=== PATIENT | female | born 1970 | race Caucasian/White ===

== ENCOUNTER 2018-03-11 02:00 | Emergency (ER) | payer MEDICAID ==
[2018-03-11] MEDS ORDERED: Zofran 4 MG/2 ML VIAL IV ONE ×2 (02:01→02:24)
[2018-03-11] MEDS ORDERED: DIPRIVAN 200 MG/20 ML IV ONE (02:01)
[2018-03-11] MEDS ORDERED: SUBLIMAZE 100 MCG/2 ML IV ONE (02:01)
[2018-03-11] MEDS ORDERED: Zemuron 100 MG/10 ML IJ ONE (02:01)
[2018-03-11] MEDS ORDERED: TORAdol 30 mg Injection IJ ONE (02:01)
[2018-03-11] MEDS ORDERED: Quelicin Fliptop 200 MG/10 ML IJ ONE (02:01)
[2018-03-11] MEDS ORDERED: Decadron 4 MG INJ IV ONE (02:01)
[2018-03-11] MEDS ORDERED: Pepcid 20 MG VIAL IV ONE ×5 (02:24→07:50)
[2018-03-11] MEDS ORDERED: Hydromorphone 1 mg/ml Ampule IV ONE (02:24)
[2018-03-11] MEDS ORDERED: Sodium Chloride 0.9% 1000 ML 1,000 ML IV SCH (02:30)
[2018-03-11] MEDS ORDERED: Zofran 4 MG/2 ML VIAL ONE ×2 (02:53→10:20)
[2018-03-11] MEDS ORDERED: Hydromorphone 1 mg/ml Ampule ONE (02:54)
--- NOTE | 2018-03-11 02:57 | ERPHSYRPT ---
- History of Present Illness Time Seen by Provider: 03/11/18 02:25 Historian: patient Exam Limitations: clinical condition Physician History: PATIENT COMPLAINS OF ACUTE ONSET OF EPIGASTRIC PAIN ASSOCIATE WITH EMESIS X 3-4 EPISODES SINCE 10PM LAST NIGHT AFTER EATING DINNER. STATES PAIN RADIATES TO BACK. RATES PAIN SCALE 10/10. DENIES DIARRHEA, FEVER OR URINARY SYMPTOMS. Timing/Duration: yesterday Activities at Onset: none Quality: sharpness, stabbing Abdominal Pain Onset Location: epigastric Pain Radiation: back Severity of Pain-Max: severe Severity of Pain-Current: severe Modifying Factors: Improves With: eating Associated Symptoms: nausea, vomiting Previous symptoms: no prior history Home Medications: No Reportable Medications [No Reported Medications] 03/11/18 [History] - Review of Systems Constitutional: No Fever, No Chills Eyes: No Symptoms Ears, Nose, & Throat: No Symptoms Respiratory: No Symptoms, No Cough, No Dyspnea Cardiac: No Symptoms, No Chest Pain, No Edema, No Syncope Abdominal/Gastrointestinal: Abdominal Pain, Nausea, Vomiting, No Diarrhea Genitourinary Symptoms: No Symptoms, No Dysuria Musculoskeletal: Back Pain, No Neck Pain Skin: No Symptoms, No Rash Neurological: Irritability, No Dizziness, No Focal Weakness, No Sensory Changes Psychological: No Symptoms Endocrine: No Symptoms All Other Systems: Reviewed and Negative - Female History Hx Now: No (PREVIOUS HYSTERECTOMY) - Nursing Vital Signs Nursing Vital Signs: Initial Vital Signs Temperature 97.4 F 03/11/18 02:24 Pulse Rate 55 L 03/11/18 02:24 Blood Pressure 159/78 03/11/18 02:24 O2 Sat by Pulse Oximetry 99 03/11/18 02:24 Pain Scale Pain Intensity 10 - CT Exams Abdomen/Pelvis CT Interpretation: Tele-radiologist Report (GALLSTONES, GALLBLADDER WALL THICKENING, AND PERICHOLECSTIC FLUID, EVIDENCE OF ACUTE CHOLECYSTITIS) Ordered Tests: Active Orders 24 hr Category Date Time Status Clean Catch Urine Specimen STAT Care 03/11/18 02:24 Active EKG-ER Only STAT Care 03/11/18 02:24 Active IV Insertion STAT Care 03/11/18 02:24 Active ABDOMEN AND PELVIS W CONTRAST [CT] Stat Exams 03/11/18 02:29 Ordered CHEST 1 VIEW (PORTABLE) Stat Exams 03/11/18 02:31 Ordered AMYLASE Stat Lab 03/11/18 03:00 Completed BLOOD CULTURE Stat Lab 03/11/18 06:55 Received CBC W DIFF Stat Lab 03/11/18 03:00 Completed CMP Stat Lab 03/11/18 03:00 Completed LIPASE Stat Lab 03/11/18 03:00 Completed Lactic Acid Stat Lab 03/11/18 03:35 Completed PROTIME WITH INR Stat Lab 03/11/18 03:00 Completed TROPONIN Q3H Lab 03/11/18 03:00 Completed UA W/RFX UR CULTURE Stat Lab 03/11/18 03:53 Completed Medication Summary Generic Name Dose Route Start Last Admin Trade Name Freq PRN Reason Stop Dose Admin Sodium Chloride 1,000 mls @ 500 mls/hr 03/11/18 02:30 03/11/18 02:56 Sodium Chloride 0.9% 1000 Ml IV 04/10/18 02:29 500 mls/hr .Q2H LORIE Administration Discontinued Medications Generic Name Dose Route Start Last Admin Trade Name Freq PRN Reason Stop Dose Admin Famotidine 20 mg 03/11/18 02:24 03/11/18 02:58 Pepcid 20 Mg Vial IV 03/11/18 02:25 20 mg STAT ONE Administration Famotidine Confirm 03/11/18 02:54 Pepcid 20 Mg Vial Administered 03/11/18 02:55 Dose 20 mg IV .STK-MED ONE Hydromorphone HCl 1 mg 03/11/18 02:24 03/11/18 02:59 Hydromorphone 1 Mg/Ml Ampule IV 03/11/18 02:25 1 mg STAT ONE Administration Hydromorphone HCl Confirm 03/11/18 02:54 Hydromorphone 1 Mg/Ml Ampule Administered 03/11/18 02:55 Dose 1 mg .ROUTE .STK-MED ONE Piperacillin Sod/Tazobactam Sod 3.375 gm in 100 mls @ 200 mls/hr 03/11/18 06: 10 03/11/18 06:20 Zosyn 3.375gm/100 Ml D5w IV 03/11/18 06:39 3.375 gm/hr STAT STA 100 mls/hr Administration Piperacillin Sod/Tazobactam Sod Confirm 03/11/18 06:14 Zosyn 3.375gm/100 Ml D5w Administered 03/11/18 06:15 Dose 3.375 gm in 100 mls @ ud IV .STK-MED ONE Ketorolac Tromethamine 30 mg 03/11/18 04:54 03/11/18 05:02 Toradol 30 Mg Injection IV 03/11/18 04:55 30 mg STAT ONE Administration Ketorolac Tromethamine Confirm 03/11/18 05:01 Toradol 30 Mg Injection Administered 03/11/18 05:02 Dose 30 mg .ROUTE .STK-MED ONE Ondansetron HCl 4 mg 03/11/18 02:24 03/11/18 02:59 Zofran 4 Mg/2 Ml Vial IV 03/11/18 02:25 4 mg STAT ONE Administration Ondansetron HCl Confirm 03/11/18 02:53 Zofran 4 Mg/2 Ml Vial Administered 03/11/18 02:54 Dose 4 mg .ROUTE .STK-MED ONE Lab/Rad Data: Laboratory Result Diagrams 03/11/18 03:00 03/11/18 03:00 Laboratory Results 03/11/18 03/11/18 03/11/18 Range/Units 03:53 03:35 03:00 WBC (4.0-10.5) K/mm3 RBC (4.1-5.4) M/mm3 Hgb (12.0-16.0) gm/dl Hct (35-47) % MCV (78-100) fl MCH (26-32) pg MCHC (32-36) g/dl RDW (11.5-14.0) % Plt Count (150-450) K/mm3 MPV (6-9.5) fl Gran % (36.0-66.0) % Eos # (Auto) (0-0.5) Absolute Lymphs (auto) (1.0-4.6) Absolute Monos (auto) (0.0-1.3) Lymphocytes % (24.0-44.0) % Monocytes % (0.0-12.0) % Eosinophils % (0.00-5.0) % Basophils % (0.0-0.4) % Absolute Granulocytes (1.4-6.9) Basophils # (0-0.4) PT (9.95-12.35) SECONDS INR (0.8-3.0) Sodium (137-145) mmol/L Potassium (3.5-5.1) mmol/L Chloride (98-107) mmol/L Carbon Dioxide (22-30) mmol/L Anion Gap (5-15) MEQ/L BUN (7-17) mg/dL Creatinine (0.52-1.04) mg/dL Estimated GFR ML/MIN Glucose (74-106) mg/dL Lactic Acid 1.6 (0.4-2.0) Calcium (8.4-10.2) mg/dL Total Bilirubin (0.2-1.3) mg/dL AST (14-36) U/L ALT (0-35) U/L Alkaline Phosphatase (38-126) U/L Troponin I < 0.012 (0.000-0.034) ng/mL Serum Total Protein (6.3-8.2) g/dL Albumin (3.5-5.0) g/dL Amylase (30-110) U/L Lipase (23-300) U/L Urine Color YELLOW (YELLOW) Urine Appearance CLEAR (CLEAR) Urine pH 7.0 (5-6) Ur Specific Redbird 1.018 (1.005-1.025) Urine Protein NEGATIVE (Negative) Urine Ketones TRACE (NEGATIVE) Urine Blood SMALL (0-5) Ignacio/ul Urine Nitrite NEGATIVE (NEGATIVE) Urine Bilirubin NEGATIVE (NEGATIVE) Urine Urobilinogen NEGATIVE (0-1) mg/dL Ur Leukocyte Esterase NEGATIVE (NEGATIVE) Urine WBC (Auto) NONE (0-5) /HPF Urine RBC (Auto) NONE (0-2) /HPF U Epithel Cells (Auto) NONE (FEW) /HPF Urine Bacteria (Auto) NONE (NEGATIVE) /HPF Urine Culture Reflexed NO (NO) Urine Glucose 50 (NEGATIVE) mg/dL 03/11/18 03/11/18 03/11/18 Range/Units 03:00 03:00 03:00 WBC 13.0 H (4.0-10.5) K/mm3 RBC 4.33 (4.1-5.4) M/mm3 Hgb 12.2 (12.0-16.0) gm/dl Hct 37.7 (35-47) % MCV 87.1 (78-100) fl MCH 28.2 (26-32) pg MCHC 32.4 (32-36) g/dl RDW 13.9 (11.5-14.0) % Plt Count 191 (150-450) K/mm3 MPV 10.6 H (6-9.5) fl Gran % 83.2 H (36.0-66.0) % Eos # (Auto) 0.05 (0-0.5) Absolute Lymphs (auto) 1.48 (1.0-4.6) Absolute Monos (auto) 0.61 (0.0-1.3) Lymphocytes % 11.4 L (24.0-44.0) % Monocytes % 4.7 (0.0-12.0) % Eosinophils % 0.4 (0.00-5.0) % Basophils % 0.3 (0.0-0.4) % Absolute Granulocytes 10.82 H (1.4-6.9) Basophils # 0.04 (0-0.4) PT 11.9 (9.95-12.35) SECONDS INR 1.02 (0.8-3.0) Sodium 138 (137-145) mmol/L Potassium 3.8 (3.5-5.1) mmol/L Chloride 104 (98-107) mmol/L Carbon Dioxide 26 (22-30) mmol/L Anion Gap 13.0 (5-15) MEQ/L BUN 14 (7-17) mg/dL Creatinine 0.68 (0.52-1.04) mg/dL Estimated GFR > 60.0 ML/MIN Glucose 171 H (74-106) mg/dL Lactic Acid (0.4-2.0) Calcium 10.3 H (8.4-10.2) mg/dL Total Bilirubin 0.40 (0.2-1.3) mg/dL AST 21 (14-36) U/L ALT 27 (0-35) U/L Alkaline Phosphatase 74 (38-126) U/L Troponin I (0.000-0.034) ng/mL Serum Total Protein 7.8 (6.3-8.2) g/dL Albumin 4.5 (3.5-5.0) g/dL Amylase 56 (30-110) U/L Lipase 130 (23-300) U/L Urine Color (YELLOW) Urine Appearance (CLEAR) Urine pH (5-6) Ur Specific Redbird (1.005-1.025) Urine Protein (Negative) Urine Ketones (NEGATIVE) Urine Blood (0-5) Ignacio/ul Urine Nitrite (NEGATIVE) Urine Bilirubin (NEGATIVE) Urine Urobilinogen (0-1) mg/dL Ur Leukocyte Esterase (NEGATIVE) Urine WBC (Auto) (0-5) /HPF Urine RBC (Auto) (0-2) /HPF U Epithel Cells (Auto) (FEW) /HPF Urine Bacteria (Auto) (NEGATIVE) /HPF Urine Culture Reflexed (NO) Urine Glucose (NEGATIVE) mg/dL - Progress Progress: improved, pain not gone completely Progress Note: 03/11/18 07:04 IV NORMAL SALINE 250ML/HR ZOFRAN 4MG, DILAUDID 1MG, TORADOL 30MG IV. Discussed with : Donnie (DISCUSSED WITH DR LOVE AT 0650 FOR ADMIT TO SURGERY FROM THE EMERGENCY), Other (DISCUSSED ) - Departure Time of Disposition: 07:08 Departure Disposition: Observation Clinical Impression: Cholelithiasis with acute cholecystitis Condition: Stable Critical Care Time: No
[2018-03-11 03:13] LABS: BASOPHIL % 0.3 % (0.0-0.4); Basophil (Absolute #) 0.04 (0-0.4); Eosinophil % 0.4 % (0.00-5.0); Eosinophil (Absolute #) 0.05 (0-0.5); Granulocyte Absolute (ANC) 10.82 (1.4-6.9); Granulocytes % 83.2 % (36.0-66.0); Hematocrit 37.7 % (35-47); Hemoglobin 12.2 gm/dl (12.0-16.0); Lymphocyte (Absolute #) 1.48 (1.0-4.6); Lymphocytes % 11.4 % (24.0-44.0); Mean Cell Volume 87.1 fl (78-100); Mean Corpuscular Hemoglobin 28.2 pg (26-32); Mean Corpuscular Hgb Concent. 32.4 g/dl (32-36); Mean Platelet Volume 10.6 fl (6-9.5); Monocyte (Absolute #) 0.61 (0.0-1.3); Monocytes % 4.7 % (0.0-12.0); Platelet Count 191 K/mm3 (150-450); Red Blood Count 4.33 M/mm3 (4.1-5.4); Red Cell Distribution Width 13.9 % (11.5-14.0)
[2018-03-11 03:23] LABS: INR 1.02 (0.8-3.0); PROTIME 11.9 SECONDS (9.95-12.35)
[2018-03-11 03:26] LABS: ALBUMIN 4.5 g/dL (3.5-5.0); ALKALINE PHOSPHATASE 74 U/L (38-126); AMYLASE 56 U/L (30-110); BLOOD UREA NITROGEN 14 mg/dL (7-17); CHLORIDE 104 mmol/L (98-107); Calcium 10.3 mg/dL (8.4-10.2); Carbon Dioxide 26 mmol/L (22-30); Creatinine 1 0.68 mg/dL (0.52-1.04); Glucose 171 mg/dL (74-106); LIPASE 130 U/L (23-300); Potassium 3.8 mmol/L (3.5-5.1); SGOT/AST 21 U/L (14-36); SGPT/ALT 27 U/L (0-35); SODIUM 138 mmol/L (137-145); Total Protein 7.8 g/dL (6.3-8.2)
[2018-03-11 04:03] LABS: Appearance CLEAR (CLEAR); Bilirubin NEGATIVE (NEGATIVE); Blood SMALL Ery/ul (0-5); Glucose 50 mg/dL (NEGATIVE); Ketones TRACE (NEGATIVE); Leukocyte Esterase NEGATIVE (NEGATIVE); Nitrite NEGATIVE (NEGATIVE); Protein,Urine Dip NEGATIVE (Negative); Specific Gravity 1.018 (1.005-1.025); Urobilinogen NEGATIVE mg/dL (0-1)
[2018-03-11 04:45] VITALS: BP 165/81
[2018-03-11] MEDS ORDERED: TORAdol 30 mg Injection IV ONE (04:54)
[2018-03-11] MEDS ORDERED: TORAdol 30 mg Injection ONE (05:01)
[2018-03-11] MEDS ORDERED: Zosyn 3.375GM/100 Ml D5W 3.375 GM/100 ML IVPB IV STA (06:10)
[2018-03-11] MEDS ORDERED: Zosyn 3.375GM/100 Ml D5W 3.375 GM/100 ML IVPB IV ONE (06:14)
[2018-03-11] MEDS ORDERED: MORPHINE SULFATE 4 MG INJ ONE (07:09)
[2018-03-11] MEDS ORDERED: MORPHINE SULFATE 4 MG INJ IV ONE (07:09)
[2018-03-11] MEDS ORDERED: Lactated Ringers 1,000 ML IV SCH (08:00)
[2018-03-11] MEDS ORDERED: MEFOXIN 2 GM PREMIX** 2 GM/50 ML ML IV ONE (08:00)
[2018-03-11 08:24] VITALS: PULSE 90; O2SAT 97
--- NOTE | 2018-03-11 08:24 | XRAY ---
Indication: Cough. Back pain. Comparison: None Portable chest demonstrates normal heart, lungs, and bony thorax with incidental right mid lung calcified granuloma.
--- NOTE | 2018-03-11 08:27 | XRAY ---
Indication: Epigastric pain. Emesis. Multiple contiguous axial images obtained through the abdomen and pelvis using 80 cc Isovue-370 contrast only. Comparison: None Lung bases essentially clear. Heart is not enlarged. Noncontrasted stomach and bowel loops appear nonobstructed. Normal appendix. Previous hysterectomy. No free fluid/air. Abnormal distended gallbladder with gallstones, largest 3.2 cm. Mild biliary prominence. Spleen is enlarged measuring 13 cm in greatest axial dimension. Sub-centimeter right mid renal cortical cyst. 4 cm right adnexa cyst presumed ovary in etiology. Remaining liver, pancreas, spleen, adrenal glands, kidneys, ureters, bladder, and aorta appear unremarkable. No pathologic retroperitoneal lymphadenopathy. Osseous structures intact. No ventral or inguinal hernias. Impression: 1. Abnormal distended gallbladder with gallstones and biliary distention. Ultrasound may yield further information. 2. 4 cm right adnexal cystic mass probably ovary in etiology. Pelvic sonogram may yield further information. 3. Incidental splenomegaly and subcentimeter right renal cyst. Comment: Preliminary interpretation was made by C. No critical discrepancy. CTDI 23.60
[2018-03-11] MEDS ORDERED: Sensorcaine 0.25% 10 ML ONE (08:36)
[2018-03-11] MEDS ORDERED: Lactated Ringers 1,000 ML IV ONE (08:37)
[2018-03-11] MEDS ORDERED: Phenergan 25 MG INJ ONE (10:38)
--- NOTE | 2018-03-13 10:36 | HP ---
HISTORY OF PRESENT ILLNESS: A 47 year-old obese female with epigastric pain radiating to her back. She had some nausea and vomiting. No jaundice. PAST MEDICAL HISTORY: She denies any chronic illnesses. Gallstones, gallbladder wall thickening, pericholecystic fluid. She had small cysts on her ovaries as well followed by her primary care physician/informatics coordinator. PAST SURGICAL HISTORY: Two or three sections and hysterectomy in the past. MEDICATIONS: None on a regular basis. ALLERGIES: I BELIEVE SHE SAID SHE WAS NOT ALLERGIC TO ANYTHING WHEN SHE TALKED TO ME. FAMILY HISTORY: Stroke, heart disease. SOCIAL HISTORY: Quit smoking 2009. Denies alcohol abuse. REVIEW OF SYSTEMS: Twelve systems reviewed. No chest pain or palpitations other systems negative or noncontributory as above and per preadmission questionnaire. She is overweight. LAB DATA AND TESTS: She had some leukocytosis. Her liver function tests were okay. PHYSICAL EXAMINATION: Temperature 97.4F, blood pressure 159/78. ABDOMEN: Tenderness epigastrium. No peritoneal signs. EXTREMITIES: No significant edema. NEURO: Alert, oriented, moving extremities symmetrically. IMPRESSION: Epigastric pain radiating to her back, associated with nausea and vomiting. CT and history, physical exam findings suspicious for acute symptomatic cholelithiasis, acute exacerbation of chronic cholecystitis. I feel the patient will benefit from cholecystectomy. She was explained the procedure in detail including but not limited to bleeding or infection, risk of trocar injury or hernia, small risk of bowel, bladder or blood vessel injury, small risk of bile leak, bile duct injury, retained stone or sludge possibly requiring further procedure either open or ERCP, general risk of anesthesia, deep venous thrombosis, pulmonary embolism, pneumonia, perioperative risk of aches, pains, bloating, constipation and/or loose stools possibly even chronic in nature, possible need to convert to open procedure, risk of bile duct injury, retained stone possibly requiring ERCP or other procedures, open procedures, general risk of anesthesia, deep venous thrombosis, pulmonary embolism, pneumonia, perioperative risk of aches, pain, bloating, constipation and/or loose stools possibly chronic in nature. She understands and agrees to the planned procedure, will proceed with laparoscopic cholecystectomy with possible open when OR time available.
--- NOTE | 2018-03-13 10:59 | OP ---
SURGERY DATE/TIME: 03/11/2018 0833 PREOPERATIVE DIAGNOSIS: Symptomatic cholelithiasis, acute exacerbation chronic cholecystitis. POSTOPERATIVE DIAGNOSIS: Symptomatic cholelithiasis, acute exacerbation chronic cholecystitis. PROCEDURE: Laparoscopic cholecystectomy. SURGEON: Dr. Jarrett Harris. ANESTHESIA: General. ESTIMATED BLOOD LOSS: Minimal. INDICATIONS: As noted above. Risks and benefits explained in detail but not limited to and consent obtained. DESCRIPTION OF PROCEDURE AND FINDINGS: The patient was taken to the OR. General anesthesia induced. Abdomen prepped and draped in the usual sterile fashion. After official time out and no disagreement with planned procedure, a transverse incision made at the supraumbilical area. Fascia grasped and pulled upward. Veress needle inserted and tested with saline. Pneumoperitoneum accomplished insufflating opening pressure of 0-15. A 5 mm bladeless port and camera inserted without difficulty in right upper quadrant with 11 mm port placed at the supraumbilical area. Another 5 mm right upper quadrant port and 5 mm epigastric port. The gallbladder was quite distended and tense. It was necessary to decompress bile with Veress needle and 60 cc syringe this allowed it to be grasped. Dissection carried posterior, lateral to anterior fashion. Extensive acute on chronic inflammatory reaction. Slowly and carefully main cystic artery and cystic duct infundibular junction were slowly and carefully well skeletonized until the critical view obtained both anteriorly and posteriorly. Once this was accomplished cystic duct was then clipped x3 and divided in usual fashion. The cystic artery isolated clipped x3 and divided in usual fashion directly on the gallbladder wall. The gallbladder slowly and carefully dissected free from its dense, edematous almost concrete attachments to the liver bed staying directly on the gallbladder wall clipping additional oozing side branches off the cystic artery as necessary directly on the gallbladder wall. Just prior to releasing from final attachments to the anterior edge of the liver the liver bed re-inspected. Clips are noted in place in cystic duct and cystic artery stumps. There were no sign of any active bleeding or bile leakage from liver bed itself. Clips noted in place in cystic duct and cystic artery stumps. Gallbladder released from final attachments to the anterior edge of the liver, placed in Pleatman sac and then pulled up in 10/11 port site supraumbilical area. Given the thick wall and stone in the gallbladder, it was necessary to enlarge the defect slightly to allow the Pleatman sac and gallbladder to be pulled free and passed off. Port replaced. Copious amount of irrigation accomplished lateral to the liver and subhepatic space irrigating clear. The liver bed re-inspected. Clips noted in place in cystic duct and cystic artery stumps. There were no signs of any active bleeding or bile leakage. It was felt there was no benefit from drain placement. At this point the fascial defect at 10/11 site closed with puncture closure device under direct vision of the camera with #1 Vicryl. Pneumoperitoneum decompressed. The wound was irrigated out. Skin incision closed with 4-0 Vicryl. Steri-Strips and sterile dressing applied. The patient tolerated the procedure well. There were no immediate complications. Findings discussed with the family out in the waiting area. She was transferred to the recovery room in stable condition.
== END 2018-03-11 12:00 | disposition home or self-care (01) ==
LOC: ED 02:00 → MERGE 02:00 → EDBD 02:00 → ED 12:00
DX: K80.00 Calculus of gallbladder with acute cholecystitis without obstruction (principal)
CPT/HCPCS: 36000; 36415; 71045; 74177; 80053; 81001; 82150; 83605; 83690; 84484; 85025; 85610; 87040; 93005; 96360; 96361; 96365; 96374; 96375; 96376; 99140; 99285; J0330; J1100; J1170; J1885; J2270; J2405; J2543; J2550; J2704; J3010

== ENCOUNTER 2023-01-02 16:37 | Emergency (ER) | payer MEDICAID ==
[2023-01-02 17:59] VITALS: BP 176/86
[2023-01-02 18:09] VITALS: PULSE 76; RESP 18; O2SAT 97
--- NOTE | 2023-01-02 18:16 | ERPHSYRPT ---
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 The patient is presenting to the emergency room today complaining of pain and swelling to her right ankle. The patient states that she tripped on an uneven floor today twisting her right ankle. This happened at around 12:30 PM. She has not taken any pain medications. She is walking but is limping. She is denying any pain to her right leg knee or hip joint. Allergies/Adverse Reactions: No Known Drug Allergies Allergy (Verified 01/02/23 17:59) Hx Influenza Vaccination/Date Given: No Hx Pneumococcal Vaccination/Date Given: No Immunizations Up to Date: Yes Travel Risk - International Travel Have you traveled outside of the country in past 3 weeks: No - Coronavirus Screening Are you exhibiting any of the following symptoms?: No Close contact with a COVID-19 positive Pt in past 14-21 Days: No - Vaccine Status Have you recieved a Covid-19 vaccination: No - Review of Systems Constitutional: No Fever, No Chills Eyes: No Symptoms Ears, Nose, & Throat: No Symptoms Respiratory: No Cough, No Dyspnea Cardiac: No Chest Pain, No Edema, No Syncope Abdominal/Gastrointestinal: No Abdominal Pain, No Nausea, No Vomiting, No Diarrhea Genitourinary Symptoms: No Dysuria Musculoskeletal: Joint Pain, Joint Swelling (Pain and swelling to the right ankle, the patient tripped today and twisted her right ankle), No Back Pain, No Neck Pain Skin: No Rash Neurological: No Dizziness, No Focal Weakness, No Sensory Changes Psychological: No Symptoms Endocrine: No Symptoms All Other Systems: Reviewed and Negative - Past Medical History Neurological History: No Pertinent History ENT History: No Pertinent History Cardiac History: No Pertinent History Respiratory History: No Pertinent History Endocrine Medical History: No Pertinent History Musculoskeletal History: Arthritis GI Medical History: No Pertinent History History: No Pertinent History Psycho-Social History: No Pertinent History Female Reproductive Disorders: Other Other Medical History: Pt states that she had excessive Uterine bleeding and they Performed Hysterectomy 2014 - Past Surgical History Past Surgical History: Yes Neuro Surgical History: No Pertinent History Cardiac: No Pertinent History Respiratory: No Pertinent History Gastrointestinal: No Pertinent History Genitourinary: No Pertinent History Musculoskeletal: No Pertinent History Female Surgical History: Hysterectomy Other Surgical History: Hysterectomy 2014 - Social History Smoking Status: Former smoker Exposure to second hand smoke: Yes Drug Use: none Patient Lives Alone: No - Nursing Vital Signs Nursing Vital Signs: Initial Vital Signs Pulse Rate 75 01/02/23 17:58 Respiratory Rate 16 01/02/23 17:58 Blood Pressure 176/86 01/02/23 17:58 O2 Sat by Pulse Oximetry 96 01/02/23 17:58 Pain Scale Pain Intensity 6 - Physical Exam General Appearance: no apparent distress, alert Eyes, Ears, Nose, Throat Exam: moist mucous membranes Neck Exam: non-tender, supple Cardiovascular/Respiratory Exam: chest non-tender, normal breath sounds, regular rate/rhythm, no respiratory distress Gastrointestinal/Abdominal Exam: non-tender, guarding Back Exam: normal inspection, No vertebral tenderness Hips Exam: bilateral: non-tender, normal inspection, normal range of motion, no evidence of injury Legs Exam: bilateral leg: non-tender, normal inspection, normal range of motion Knees Exam: bilateral knee: non-tender, normal inspection, normal range of motion, no evidence of injury Ankle Exam: right ankle: bone tenderness, joint effusion, limited range of mo tion, pain, soft tissue tenderness (The patient has a swelling to the right lateral malleolus with deep tenderness. Pain with range of motion especially plantar flexion.), swelling Foot Exam: bilateral foot: non-tender, normal inspection, normal range of motion, no evidence of injury Neuro/Tendon Exam: normal sensation, normal motor functions Mental Status Exam: alert, oriented x 3, cooperative Skin Exam: normal color, warm, dry SpO2: 97 - Course Nursing assessment & vital signs reviewed: Yes Ordered Tests: Active Orders 24 hr Category Date Time Status Crutches STAT Care 01/02/23 19:19 Completed Splint STAT Care 01/02/23 19:19 Completed ANKLE (3 VIEWS) Stat Exams 01/02/23 18:24 Completed FOOT (MINIMUM 3 VIEWS) Stat Exams 01/02/23 18:24 Completed - Progress Progress: unchanged Progress Note: 52 years old female with past medical history of 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 The patient is presenting to the emergency room today complaining of pain and swelling to her right ankle. The patient states that she tripped on an uneven floor today twisting her right ankle. This happened at around 12:30 PM. She has not taken any pain medications. She is walking but is limping. She is denying any pain to her right leg knee or hip joint. Emergency room course and medical decision making: Will order an an x-ray to the right ankle/ foot rule out any fracture, dislocation or sprain. The patient is refusing any pain medications at present 01/02/23 18:13 01/02/23 19:28 X-rays of the right foot revealed fracture of the base of the fifth and fourth metatarsals. Walking boot or an orthopedic shoe, crutches. The patient should follow-up with a electrical contacts adjuster or orthopedic in 2 to 3 days. For the pain she can take ibuprofen 800 mg 3 times a day as needed. Follow-up as needed for any worsening symptoms. - Departure Departure Disposition: Home Clinical Impression: Fracture of metatarsal bone of right foot Condition: Stable Critical Care Time: No Referrals: DOCTOR,NO FAMILY [Primary Care Provider] - Follow up/PCP as directed Instructions: Contusion (DC), Foot Fracture (DC) Prescriptions: Ibuprofen [Ibuprofen Ib] 800 mg PO Q6H #40 tablet
--- NOTE | 2023-01-02 21:27 | XRAY ---
Indication: Pain following twisting injury. Comparison: None 3 view right ankle demonstrates mild diffuse soft tissue swelling, small anterior talus bone island, and tiny plantar heel spur. Base 5th metatarsal fracture. No other bony, articular, or soft tissue abnormalities.
--- NOTE | 2023-01-02 21:29 | XRAY ---
Indication: Pain following twisting injury. Comparison: None 3 nonweightbearing views right foot demonstrates nondisplaced oblique fracture base 5th metatarsal. Elsewhere incidental tiny plantar heel spur and small anterior talus bone island.
== END 2023-01-02 20:06 | disposition home or self-care (01) ==
LOC: ED 16:37
DX: S92.341A Displaced fracture of fourth metatarsal bone, right foot, initial encounter for closed fracture (principal); S92.351A Displaced fracture of fifth metatarsal bone, right foot, initial encounter for closed fracture; W18.49XA Other slipping, tripping and stumbling without falling, initial encounter; M25.571 Pain in right ankle and joints of right foot; Z28.310 Unvaccinated for COVID-19
CPT/HCPCS: 73610; 73630; 99283

== ENCOUNTER 2023-03-21 16:25 | Emergency (ER) | payer SELFPAY ==
[2023-03-21 17:41] VITALS: RESP 18; TEMP 97.9; O2SAT 98
--- NOTE | 2023-03-21 18:24 | ERPHSYRPT ---
- History of Present Illness Time Seen by Provider: 03/21/23 17:45 Source: patient Exam Limitations: no limitations Patient Subjective Stated Complaint: Left foot pain Triage Nursing Assessment: Patient brought back to ED per w/c and requested to dinh metcalf in w/c. Patient A+O X 3. Patient's skin pink, warm and dry. Patient states she tripped today while at work causing pain to left foot. Patient complains of pain to mid foot when ambulating. Slight swelling noted. Physician History: Patient is a 52-year-old white female who tripped while she was at work today and fell suffering a fall and an injury to the left foot she has pain in the midfoot and over the lateral aspect. No other complaints from present leading to the fall. Method of Injury: fell Occurred: just prior to arrival Quality: aching Severity of Pain-Max: moderate Severity of Pain-Current: moderate Lower Extremities Pain: foot: left (Pain over the lateral aspect.) Modifying Factors: Improves With: movement, other (Weightbearing) Allergies/Adverse Reactions: No Known Drug Allergies Allergy (Verified 03/21/23 17:30) Hx Influenza Vaccination/Date Given: No Hx Pneumococcal Vaccination/Date Given: No Immunizations Up to Date: Yes Travel Risk - International Travel Have you traveled outside of the country in past 3 weeks: No - Coronavirus Screening Are you exhibiting any of the following symptoms?: No Close contact with a COVID-19 positive Pt in past 14-21 Days: No - Vaccine Status Have you recieved a Covid-19 vaccination: No - Review of Systems Constitutional: No Fever, No Chills Eyes: No Symptoms Ears, Nose, & Throat: No Symptoms Respiratory: No Cough, No Dyspnea Cardiac: No Chest Pain, No Edema, No Syncope Abdominal/Gastrointestinal: No Abdominal Pain, No Nausea, No Vomiting, No Diarrhea Genitourinary Symptoms: No Dysuria Musculoskeletal: Injury, Joint Pain, Joint Swelling, No Back Pain, No Neck Pain Skin: No Rash Neurological: No Dizziness, No Focal Weakness, No Sensory Changes Psychological: No Symptoms Endocrine: No Symptoms All Other Systems: Reviewed and Negative - Past Medical History Pertinent Past Medical History: Yes Neurological History: No Pertinent History ENT History: No Pertinent History Cardiac History: No Pertinent History Respiratory History: No Pertinent History Endocrine Medical History: No Pertinent History Musculoskeletal History: Arthritis GI Medical History: No Pertinent History History: No Pertinent History Psycho-Social History: No Pertinent History Female Reproductive Disorders: Other Other Medical History: Pt states that she had excessive Uterine bleeding and they Performed Hysterectomy 2014 - Past Surgical History Past Surgical History: Yes Neuro Surgical History: No Pertinent History Cardiac: No Pertinent History Respiratory: No Pertinent History Gastrointestinal: No Pertinent History Genitourinary: No Pertinent History Musculoskeletal: No Pertinent History Female Surgical History: Hysterectomy Other Surgical History: Hysterectomy 2014 - Social History Smoking Status: Former smoker Exposure to second hand smoke: Yes Drug Use: none Patient Lives Alone: No - Nursing Vital Signs Nursing Vital Signs: Initial Vital Signs Temperature 97.9 F 03/21/23 17:31 Pulse Rate 63 03/21/23 17:31 Respiratory Rate 18 03/21/23 17:31 Blood Pressure 198/77 03/21/23 17:31 O2 Sat by Pulse Oximetry 98 03/21/23 17:31 Pain Scale Pain Intensity 0 - Physical Exam General Appearance: mild distress, alert Eyes, Ears, Nose, Throat Exam: moist mucous membranes Neck Exam: non-tender, supple Cardiovascular/Respiratory Exam: chest non-tender, normal breath sounds, regular rate/rhythm, no respiratory distress Gastrointestinal/Abdominal Exam: non-tender, guarding Back Exam: normal inspection, No vertebral tenderness Foot Exam: left foot: bone tenderness, limited range of motion, pain, soft tissue tenderness, swelling Neuro/Tendon Exam: normal sensation, normal motor functions Mental Status Exam: alert, oriented x 3, cooperative Skin Exam: normal color, warm, dry SpO2: 98 - Radiology Exams Left Foot X-ray Interpretation: Reviewed by me, Other (Fracture of the proximal left fifth metatarsal) Ordered Tests: Active Orders 24 hr Category Date Time Status FOOT (MINIMUM 3 VIEWS) Stat Exams 03/21/23 17:03 Taken - Progress Progress: pain not gone completely Medical Desision Making - Diagnostic Testing Radiological Interpretation: Reviewed by me - Risk of complications Low Risk: Low risk of morbidity from additional dx testing or treatment - Departure Departure Disposition: Home Clinical Impression: Fracture of metatarsal of left foot, closed Condition: Stable Critical Care Time: No Referrals: DOCTOR,NO FAMILY [Primary Care Provider] - Follow up/PCP as directed Instructions: Foot Fracture (DC) Prescriptions: Hydrocodone/Acetaminophen [Hydrocodone-Acetamin 5-325 mg] 1 tab PO Q6HPRN PRN 3 Days #12 tablet MDD 4 PRN Reason: Pain
[2023-03-21 18:27] VITALS: BP 198/87; PULSE 60
--- NOTE | 2023-03-22 08:34 | XRAY ---
Indication: Pain following fall. Comparison: None 3 nonweightbearing views right foot demonstrates nondisplaced fracture proximal shaft 5th metatarsal. Incidental tiny posterior heel spur. No other bony, articular, or soft tissue abnormalities. Comment: Fracture not reported by interpreting ER clinician. Telephone report given to Dr. Chandra at 0829 hrs. on March 22, 2023.
== END 2023-03-21 18:36 | disposition home or self-care (01) ==
LOC: ED 16:25
DX: S92.352A Displaced fracture of fifth metatarsal bone, left foot, initial encounter for closed fracture (principal); W01.0XXA Fall on same level from slipping, tripping and stumbling without subsequent striking against object, initial encounter; Y99.0 Civilian activity done for income or pay; Z79.891 Long term (current) use of opiate analgesic; Z28.310 Unvaccinated for COVID-19
CPT/HCPCS: 73630; 99282